=== PATIENT | female | born 1970 ===

== ENCOUNTER 2017-08-19 08:16 | Emergency (ER) | payer SELFPAY ==
[~2017-08-19] VITALS: Ht 165.1 cm; Wt 62.6 kg
--- NOTE | 2017-08-19 08:55 | ED CARDIAC/CP/PALPITATIONS ---
History of Present Illness General Chief Complaint: Chest Pain Stated Complaint: CP Source: patient Exam Limitations: no limitations Vital Signs & Intake/Output Vital Signs & Intake/Output Vital Signs Date Time Temp Pulse Resp B/P B/P Pulse O2 O2 Flow FiO2 Mean Ox Delivery Rate 08/19 1046 97.6 83 20 150/68 97 Room Air 08/19 0829 96.5 120 18 170/91 99 Room Air Allergies Coded Allergies: No Known Drug Allergies (Intermediate, NONE 08/19/17) Reconcile Medications Famotidine (Acid Controller) 20 MG TABLET 1 TAB PO DAILY GI (Reported) Omeprazole 20 MG TABLET.DR 1 TAB PO DAILY GI (Reported) Pantoprazole Sodium (Protonix) 20 MG TABLET.DR 1 TAB PO DAILY gerd Triage Note: C/O EPIGASTRIC PAIN RADIAITNG TO CHEST X 4 DAYS, (INTERMITTATN). DENIES SOB, DIZZINESS, NAUSEA. PMH: GERD, HTN. EKG DONE ON ARRIVAL. Triage Nurses Notes Reviewed? yes Onset: Gradual Duration: day(s): Timing: recent history Quality/Severity: moderate, grinding Location: epigastric Radiation: chest Prior Chest Pain/Card Workup: non-cardiac HPI: 47yo female with hx of HTN, GERD from [place] here in on vacation presents to ED complaining of epigastric pain for the past 4 days. Patient describes pain as grinding, 8/10, worse during the day and improved at night, fluctuating, radiating to left chest at times. Patient states she has a history of a similar pain in the past, had a workup in [place] and was told she had GERD. Patient was taking omeprazole and famotidine previously for about 1 month, her symptoms have improved. Patient discontinued these medications and noticed worsening symptoms over the past 4 days. Patient began his medications again however no improvement this time. Patient recently had 4 hour flight from [place] to on 08/01/17. Patient denies dyspnea, cough, hemoptysis, nausea, vomiting, diarrhea, fevers, diaphoresis, syncope, history of blood clots. (Nancy GÓMEZ,Mana Gomez) Past History Travel History Traveled to [facility] past 21 day No Medical History Any Pertinent Medical History? see below for history Cardiovascular: hypertension Gastrointestinal: GERD Surgical History Surgical History: non-contributory Psychosocial History What is your primary language Cymro Tobacco Use: Never used ETOH Use: denies use Family History Hx Contributory? No (Mana uBchanan) Review of Systems Review of Systems Constitutional: Reports: no symptoms. EENTM: Reports: no symptoms. Respiratory: Reports: no symptoms. Cardiovascular: Reports: see HPI. GI: Reports: see HPI. Genitourinary: Reports: no symptoms. Musculoskeletal: Reports: no symptoms. Skin: Reports: no symptoms. Neurological/Psychological: Reports: no symptoms. Hematologic/Endocrine: Reports: no symptoms. Immunologic/Allergic: Reports: no symptoms. All Other Systems: Reviewed and Negative (Mana Buchanan) Physical Exam Physical Exam General Appearance: well developed/nourished, no apparent distress, alert, awake Head: atraumatic, normal appearance Eyes: Bilateral: normal appearance. Ears, Nose, Throat: hearing grossly normal Neck: normal inspection, supple, full range of motion Respiratory: normal breath sounds, no respiratory distress, lungs clear, STERNAL CHEST TENDERNESS Cardiovascular: normal peripheral pulses, tachycardia Peripheral Pulses: 2+ radial (R), 2+ radial (L) Gastrointestinal: normal bowel sounds, soft, non-tender, no organomegaly Back: normal inspection, normal range of motion Extremities: normal inspection, normal range of motion, no edema Neurologic/Psych: awake, alert, oriented x 3 Skin: intact, normal color, warm/dry Core Measures ACS in differential dx? Yes CVA/TIA Diagnosis No Sepsis Present: No Sepsis Focused Exam Completed? No All Positive = PERC Ruled Out: Positive: age < 50 years, O2 sat > 94%, no hemoptysis, no hormone use, no prior DVT or PE, no unilateral leg swellin, no surgery/trauma w/in 4w. Negative: heart rate < 100 bpm. (Mana Buchanan) Progress Differential Diagnosis: AMI, atrial fibrillation, CHF/pulm edema, costochondritis, musculoskeletal pain, myocarditis, pericarditis, pneumonia, pneumothorax, pulmonary embolism, PUD/GERD, unstable angina Plan of Care: Orders Procedure Date/time Status Add-on Test (ER Only) 08/19 08 Active Add-on Test (ER Only) 08/19 0854 Active TROPONIN LEVEL 08/19 829 Complete HUMAN BETA HCG SCREEN 08/19 829 Complete D-DIMER 08/19 829 Complete COMPREHENSIVE METABOLIC PANEL 08/19 829 Complete CBC WITHOUT DIFFERENTIAL 06/06 0830 Complete EKG 08/19 0819 Active Laboratory Tests 08/19/17 0856: Anion Gap 12, Estimated GFR > 60, BUN/Creatinine Ratio 17.1, Glucose 99, Calcium 9.6, Total Bilirubin 0.6, AST 18, ALT 20, Alkaline Phosphatase 74, Troponin I < 0.01, Total Protein 7.7, Albumin 4.0, Globulin 3.7, Albumin/Globulin Ratio 1.1, Total Beta HCG NEGATIVE, D-Dimer High Sensitivty 215, CBC w Diff NO MAN DIFF REQ , RBC 3.56 L, MCV 88.9, MCH 29.3, MCHC 33.0, RDW 14.2, MPV 7.6, Gran % 63.5, Lymphocytes % 27.6, Monocytes % 7.6, Eosinophils % 1.2, Basophils % 0.1, Absolute Granulocytes 4.3, Absolute Lymphocytes 1.9, Absolute Monocytes 0.5, Absolute Eosinophils 0.1, Absolute Basophils 0 Given patient's tachycardia and recent travel from [place], d-dimer was obtained to assess for pulmonary embolism. D-dimer is negative. Patient's EKG shows sinus tachycardia without acute ischemic changes. Chest x-ray shows no evidence of acute normality. Patient's troponin enzyme is negative. Patient describes symptoms as similar to her previous episodes of GERD. Patient's chest pain is reproducible on exam, there is a low suspicion for acute coronary syndrome or cardiac pathology at this time. Patient's symptoms have also been present for 4 days. Patient feels significant improvement following GI cocktail here in the emergency department, she currently reports pain at 1/10. Given a referral to a intraoperative neuro tech and primary care doctor to follow up with however does report she will be returning to [place] in one month. Patient encouraged to follow-up with specialist upon her return to [place] as well. Patient to begin Protonix and discontinue omeprazole. She was also instructed to begin Maalox. Patient was given strict return precautions. The patient is in no acute distress, nontoxic appearing, vital signs are stable. The patient agrees with the plan of care. The patient was seen and evaluated by Dr. Luis who agrees with this plan. Diagnostic Imaging: Viewed by Me: Radiology Read. Discussed w/RAD: Radiology Read. CXR Impression: PATIENT: KARON SCHROEDER PRESENT AGE: 47 PATIENT ACCOUNT NO: [id number] : 70 LOCATION: [facility] ORDERING PHYSICIAN: Mana GÓMEZ SERVICE DATE: 08/19/17 EXAM TYPE: RAD - XRY-CHEST XRAY, TWO VIEWS EXAMINATION: CHEST 2 VIEWS CLINICAL INFORMATION: Chest pain. COMPARISON: None. TECHNIQUE: PA and lateral views of the chest were obtained. FINDINGS: The cardiac silhouette is not enlarged. The mediastinal and hilar contours are unremarkable. There are neither pleural effusions nor pneumothoraces. There are no consolidations. The osseous structures are unremarkable. IMPRESSION: No evidence for acute disease. DICTATED BY: Demetrio Rosales MD DATE/TIME DICTATED:08/19/17914 OPERATIONS DISPATCHER:EVANS DATE/TIME TRANSCRIBED:08/19/17914 CONFIDENTIAL, DO NOT COPY WITHOUT APPROPRIATE AUTHORIZATION. <Electronically signed in Other Vendor System> SIGNED BY: Demetrio Rosales MD 08/19/17919 Initial ED EKG: sinus tachycardia @116bpm, LAFB, nonspecific ST changes (Nancy GÓMEZ,Mana Gomez) Departure Departure Disposition: HOME OR SELF CARE Condition: Stable Clinical Impression Primary Impression: Epigastric pain Referrals: Patient Has No Primary Care Dr (PCP/Family) Additional Instructions: STOP taking omeprazole and begin Protonix as prescribed. Also purchase over-the -counter Maalox to help with your pain. You were given a referral to a intraoperative neuro tech and primary care doctor, you may follow up with these doctors for your still here in the . When you return to [place] please make an appointment with a intraoperative neuro tech to follow up with. If you have any worsening symptoms or other concerns such as chest pain, difficulty breathing, feeling is that he might pass out please return to the emergency department. Please note that there might be incidental findings in your evaluation that are unrelated to the current emergency department visit. Please notify your primary care doctor about this emergency department visit in order to obtain and review all of the testing performed so that these incidental findings can be monitored as needed. If you had an x-ray performed, please understand that some fractures may not be seen on the initial set of x-rays. If your symptoms persist you might need a repeat set of x-rays to check for such a fracture. If you had a laceration evaluated, please understand that foreign bodies such as glass or wood may not be visible to the naked eye or on plain x-rays. If the wound becomes red, swollen, increasingly more painful or if there is any drainage from the wound, please have it reevaluated by a physician for the possibility of a retained foreign body. If you're unable to follow up as outlined in the discharge instructions please return to the emergency department. Thank you for choosing the [facility] Emergency Department for your care. It was a pleasure to serve you today. Departure Forms: Customer Survey General Discharge Information Prescriptions: Current Visit Scripts Pantoprazole Sodium (Protonix) 1 TAB PO DAILY #30 TAB (Mana Buchanan) PA/VP TALENT MANAGEMENT Co-Sign Statement Statement: ED Attending supervision documentation- [X] I saw and evaluated the patient. I have also reviewed all the pertinent lab results and diagnostic results. I agree with the findings and the plan of care as documented in the PA's/VP TALENT MANAGEMENT's documentation. [] I have reviewed the ED Record and agree with the PA's/VP TALENT MANAGEMENT's documentation. [X] Additions or exceptions (if any) to the PAs/VP TALENT MANAGEMENT's note and plan are summarized below: Patient's symptoms fit the pattern of gastritis/reflux. Out of an abundance of caution given her age and location of her discomfort we performed a cardiac workup including troponin and d-dimer, both of which were negative. ECG nonischemic. Given that her pain has been present for 4 days, I would expect her troponin to be positive if ACS was her diagnosis, and thus I feel that in accordance with the HEART score her risk of a major adverse cardiac event with him the next 30 days is low, less than 3%. A repeat troponin 3 hours would bring her risk below 1% for this diagnosis, but the patient feels comfortable with the workup after one troponin and wishes to return home. We have prescribed Protonix to replace her omeprazole, and referred her to a primary care physician and intraoperative neuro tech. Medical screening examination otherwise negative, patient stable at time of discharge. (Viktor Luis DO) Critical Care Note Critical Care Note Critical Care Time: non-applicable (Mana Buchanan)
[2017-08-19 09:09] LABS: ABSOLUTE BASOPHIL COUNT 0 /CUMM (0.0-0.2); ABSOLUTE EOSINOPHIL COUNT 0.1 /CUMM (0.0-0.7); ABSOLUTE GRANULOCYTE CT 4.3 /CUMM (1.4-6.5); ABSOLUTE LYMPH COUNT 1.9 /CUMM (1.2-3.4); ABSOLUTE MONOCYTE COUNT 0.5 /CUMM (0.10-0.60); BASOPHIL % 0.1 % (0.0-2.0); EOSINOPHIL % 1.2 % (0-5); GRANULOCYTE % 63.5 % (42.2-75.2); HEMATOCRIT 31.7 % (37-47); MEAN CORPUSCULAR HGB 29.3 PG (27.0-31.0); MEAN CORPUSCULAR VOLUME 88.9 FL (81.0-99.0); MEAN PLATELET VOLUME 7.6 FL (7.4-10.4); PLATELET COUNT 326 /CUMM (130-400); RBC DISTRIBUTION WIDTH 14.2 % (11.5-14.5); RED BLOOD CELL CT 3.56 /CUMM (4.20-5.40); WHITE BLOOD CELL COUNT 6.9 /CUMM (4.8-10.8)
[2017-08-19] MEDS ORDERED: OMEPRAZOLE20 M3 PO (09:18)
[2017-08-19] MEDS ORDERED: ACID CONTROLLER20 MG PO (09:19)
--- NOTE | 2017-08-19 09:20 | RADIOLOGY REPORT ---
EXAMINATION: CHEST 2 VIEWS CLINICAL INFORMATION: Chest pain. COMPARISON: None. TECHNIQUE: PA and lateral views of the chest were obtained. FINDINGS: The cardiac silhouette is not enlarged. The mediastinal and hilar contours are unremarkable. There are neither pleural effusions nor pneumothoraces. There are no consolidations. The osseous structures are unremarkable. IMPRESSION: No evidence for acute disease.
[2017-08-19] MEDS ORDERED: PROTONIX20 M1 PO (10:38)
== END 2017-08-19 10:51 ==
LOC: ERH 08:16
PROVIDERS: Physician Assistant
DX: R10.13 Epigastric pain (principal)
CPT/HCPCS: 71046; 93005; 93010